=== PATIENT | female | born 1935 | race Caucasian/White ===

== ENCOUNTER 2016-10-27 19:43 | Inpatient (IN) | payer MEDICARE, OTHER ==
[~2016-10-27] VITALS: Ht 162.6 cm; Wt 77.0 kg
[~2016-10-27 19:43] MED LIST: ATEN25TA PO; ATEN50TA PO; HYDR25TA4 PO; ZOLP5TAB6 PO
[2016-10-27] MEDS ORDERED: 0.9% Sodium Chloride 1,000 ML IV ONE (19:49)
[2016-10-27 19:58] VITALS: BP 141/69; PULSE 117; RESP 26; O2SAT 95
--- NOTE | 2016-10-27 20:07 | ABG ---
DateTimeAnalyzed 20:01:00 -_ pH ____7.513 - 7.350 7.450 pCO2 ___27.7__ -mmHg 35.0 45.0 pO2 ___92.8__ -mmHg 69.0 116 HCO3- ___22.1__ -mmol/L 22.0 26.0 ABE ____0.2__ -mmol/L -2.0 2.0 tHb ___10.7__ -g/dL O2Hb ___95.6__ -% COHb ____1.3__ -% MetHb ____0.9__ -% sO2 ___97.7__ -% FIO2 ___28.0__ -% Drawn By AF - Date/Time Notified____ 20:07:00 -_ Oxygen Device 1 __CANNULA - Notified By AF - Notified Whom ___Dr. Clarisse - B 758 -mmHg tO2 ___14.5__ -Vol% Aris test _Positive -
[2016-10-27 20:13] LABS: Mean Corpuscular Hemoglobin 29.6 pg (27.0-35.0); Mean Corpuscular Volume 89.2 fL (81-100)
--- NOTE | 2016-10-27 20:16 | ED.REPORT ---
HPI-General Illness Date of Service Oct 27, 2016 ED Provider: Cesar Robb MD Pt is an 81 year old female who was sent to the ED from urgent care after losing consciousness. Pt states that she took her temperature and saw that it was at 104, which influenced her to go in to the urgent care. Pt states that she has been having a dry cough and shortness of breath for the past several days, worsening with walking around. Pt reports that she has been feeling light headed, and lost consciousness last night as well. She denies any chest pain, shortness of breath or abdominal pain. She admits to back pain, but reports that she has this pain at her baseline. Nursing Notes Stated Complaint: FEVER Chief Complaint: General Complaint Nursing Notes Reviewed: Yes Allergies: Coded Allergies: No Known Allergies (Verified Allergy, Unknown, 10/28/16) Scheduled Aspirin (Aspirin) 81 Mg Tablet 81 MG PO DAILY Atenolol (Atenolol) 25 Mg Tablet 12.5 MG PO DAILY Losartan Potassium (Losartan Potassium) 50 Mg Tablet 25 MG PO BID Scheduled PRN Zolpidem (Zolpidem) 5 Mg Tablet 5 MG PO HS PRN PRN For Insomnia Miscellaneous Medications ([Hydrochlorothiazide]) MG PO General Time Seen by MD: 19:49 Chief Complaint Breathing problem, Fever Hx Obtained From: Patient Arrived By: Ambulance Sudden in Onset?: Yes Onset Occurred: 3 days ago Symptom Duration: Since onset Severity: Current: Mild Severity: Maximum: Moderate Similar Sx Previous: Yes Past Medical History Ambulatory Status Independent Review of Systems Full Review of Systems Constitutional: Reports: Fever, Denies: Chills, Malaise, Weakness - generalized Respiratory: Reports: Non-productive cough, Shortness of breath, Denies: Wheezing Cardiovascular: Denies: Chest pain, Syncope GI: Denies: Abdominal pain, Constipation, Diarrhea, Nausea, Vomiting Female: Denies: Dysuria, Flank pain, Urinary frequency, Urinary urgency Musculoskeletal: Denies: Back pain, Extremity pain, Neck pain Neurologic: Reports: Change LOC, Lightheaded, Syncope, Denies: Dizziness, Headache, Weakness Complete sys rev & neg: except as marked. Physical Exam Nursing note and vitals reviewed. Constitutional: Well-developed, well-nourished. Not diaphoretic. Head: Normocephalic and atraumatic. Mouth/Throat: Oropharynx is clear and moist. No oropharyngeal exudate. Eyes: EOM are normal. Pupils are equal, round, and reactive to light. Neck: Supple, no tracheal deviation. Cardiovascular: tachycardia, irregular rhythm. Equal and intact distal pulses throughout. Pulmonary/Chest: Effort normal and breath sounds normal. No respiratory distress.Rhonchi heard at the right lung base Abdominal: Soft. No distension. There is no tenderness, rebound, or guarding. Bowel sounds present. Musculoskeletal: Range of motion grossly intact, moving all extremities. No edema or tenderness appreciated. Neurological: AOx3. Grossly nonfocal exam. Strength and sensation intact and equal to bilateral upper and lower extremities. Skin: Warm and dry, no rashes or pallor appreciated. Psychiatric: Appropriate mood and affect. Behavior appears normal. Vital Signs Vital Signs Date Time Temp Pulse Resp B/P Pulse Ox O2 Delivery O2 Flow Rate FiO2 10/27/16 23:02 38.2 113 28 102/74 98 Nasal Cannula 3 10/27/16 22:00 38.5 105 124/53 10/27/16 19:58 39.3 117 26 141/69 95 Nasal Cannula 3 Initial VS: Reviewed Interpretation & Diagnostics Lab Results Interpretation Result Diagram: 10/28/16 0200 10/28/16 1335 Test 10/27/16 19:29 10/27/16 23:05 Prothrombin Time 10.4sec (8.1-12.5) Prothromb Time International Ratio 0.97ratio Hemoglobin A1c 5.6% (4.8-5.6) Lactic Acid Level 1.4mmol/L (0.4-2.0) Troponin T < 0.010ug/L (0.0-0.011) Pro-B-Type Natriuretic Peptide 1240pg/mL (0-738) Lipase 28U/L (13-60) Thyroid Stimulating Hormone (TSH) 1.790uIU/mL (0.450-4.500) Urine Color Yellow (YELLOW) Urine Appearance Clear (CLEAR,HAZY) Urine pH 6.5 (5.0-8.0) Urine Specific [place] 1.005 (1.003-1.035) Urine Protein Tracemg/dL (NEG,TRACE) Urine Glucose (UA) Negativemg/dL (NEGATIVE) Urine Ketones Negativemg/dL (NEGATIVE) Urine Occult Blood Small (NEGATIVE) Urine Nitrite Negative (NEGATIVE) Urine Bilirubin Negative (NEGATIVE) Urine Urobilinogen Normalmg/dL (NORMAL) Urine Leukocyte Esterase Trace (NEGATIVE) Urine RBC 3-10/hpf (0-2) Urine WBC 0-5/hpf (0-5) Urine Epithelial Cells Occasional/hpf (NONE-MOD) Urine Crystals None seen (NONE SEEN) Urine Bacteria None/hpf (NONE-FEW) Urine Hyaline Casts None/lpf (NONE) Urine Granular Casts None seen (NONE SEEN) Urine Waxy Casts None seen (NONE SEEN) Urine Red Blood Cell Casts None seen (NONE SEEN) Urine White Blood Cell Casts None seen (NONE SEEN) Urine Mucus None seen (None Seen) Urine Trichomonas None seen (NONE SEEN) Urine Yeast None (NONE SEEN) Urinalysis Comment None Urine Culture Reflexed Not indicated Urine Legionella pneumophilia Ag Negative (Negative) ECG Interpretation ECG Interpretation: Sinus tachycardia - 112 Time: 19:51 Interpreted by: ED physician X-Ray Chest Interpretation Chest Xray Interpretation: IMPRESSION: Focal right basilar opacity most suggestive of pneumonia. Recommend interval follow to document resolution and exclude presence of underlying mass lesion. Dictated by: Angela Pearson M.D. on 10/27/2016 at 20:41 Interpretation / Wet Read by: Interpret - Radiologist CT Head Interpretation IMPRESSION: 1. No acute intracranial process. 2. Moderate atrophy and chronic microvascular ischemic changes. Dictated by: Angela Pearson M.D. on 10/27/2016 at 20:29 Interpretation / Wet Read by: Interpret - Radiologist Re-Eval/Medical Decision Med Decision/Clinical Course In summary, 81-year-old female presenting to the ED for evaluation after being found to be unresponsive with a fever at urgent care in the setting of progressive shortness of breath over the past several days. She does not have any pleuritic symptoms. Laboratory studies notable for phosphate 1.3, lactic acid 1.4, potassium 3, sodium 129, troponin negative, LFTs grossly within normal limits. White blood cell count of 15.3, hemoglobin 11.5. EKG demonstrates sinus tachycardia. Head CT negative for acute abnormalities. Chest x-ray demonstrates a right basilar opacity concerning for pneumonia. Given her fever, elevated white blood cell count, and dyspnea, it seems reasonable that this may be responsible for symptoms. Unclear why the patient became unresponsive at this time. Discussed with the hospitalist at length, who will admit the patient for further management and evaluation. Patient agreeable to the plan as stated, no further questions. Source of Hx: Old records Time of Eval: 23:50 Re-Evaluation/Progress Note: Pt is rechecked and informed of her labs and imaging results and the plan to admit her at this time. She understands and agrees, all questions are addressed. Counseled Regarding: Diagnosis, Lab results, Need for follow-up, Need for admission Discharge & Departure Primary Impression: Pneumonia Additional Impressions: Hyponatremia Hypokalemia Hypophosphatemia Disposition: Home Discharge Condition All VS Reviewed: Yes Condition: Stable Referrals: Zachary Lawrence MD (PCP) Liza Attestation Portions of this note were transcribed by Fidelina Durham. I, Dr. Robb personally performed the history, physical exam and medical decision-making; I reviewed and confirmed the accuracy of the information in the transcribed note. Signed by: Liza Avitia, 10/27/2016 23:42 copies to: Zachary Lawrence MD, William B MD Oct 27, 2016 20:16 PATITO DURHAM Oct 27, 2016 20:34
[2016-10-27 20:26] LABS: BASOPHILS % (AUTO) 0.2 % (0-3); EOSINOPHILS % (AUTO) 0 % (0-5); MONOCYTES % (AUTO) 9.5 % (4-12); Platelet Count 256 bil/L (150-400)
--- NOTE | 2016-10-27 20:31 | DRSVH ---
PROCEDURE: CT BRAIN WITHOUT CONTRAST ([id number]) INDICATIONS: AMS TECHNIQUE: Noncontrast 4.5 mm thick angled axial sections acquired from the foramen magnum to the vertex, with c oronal reformats. COMPARISON: [facility], MR, BRAIN W&W/O CONTRAST, 11/18/2013, 11:40. FINDINGS: Image quality: Excellent. CSF spaces: Basal cisterns are patent. No extra-axial fluid collections. The ventricles are symmet judson in size and shape. Brain: No intracranial bleeds or masses. There is cerebral volume loss for age, with resultant vent ricular and sulcal prominence. There are periventricular and deep white matter chronic small vessel ischemic changes. There is intracranial internal carotid artery atherosclerosis. Skull and face: Calvarium and visualized facial bones appear intact, without suspicious lesions. Sinuses: Visualized sinuses and mastoids are clear. IMPRESSION: 1. No acute intracranial process. 2. Moderate atrophy and chronic microvascular ischemic changes. Dictated by: Angela Pearson M.D. on 10/27/2016 at 20:29 Approved by: Angela Pearson M.D. on 10/27/2016 at 20:30
[2016-10-27 20:35] LABS: INR 0.97 ratio
[2016-10-27 20:41] LABS: TROPONIN T < 0.010 ug/L (0.0-0.011)
--- NOTE | 2016-10-27 20:43 | DRSVH ---
PROCEDURE: X-RAY CHEST ONE VIEW, PORTABLE ([id number]) INDICATIONS: fever, AMS TECHNIQUE: One view of the chest was acquired. COMPARISON: None. FINDINGS: Surgical changes and devices: None. Lungs and pleura: Focal opacity is present within the right base. Mediastinum: Mediastinal contours appear normal. Heart size is normal. Bones and chest wall: No suspicious bony lesions. Overlying soft tissues appear unremarkable. IMPRESSION: Focal right basilar opacity most suggestive of pneumonia. Recommend interval follow to do cument resolution and exclude presence of underlying mass lesion. Dictated by: Angela Pearson M.D. on 10/27/2016 at 20:41 Approved by: Angela Pearson M.D. on 10/27/2016 at 20:41
[2016-10-27 20:51] LABS: Lipase 28 U/L (13-60); Magnesium 1.7 mg/dL (1.6-2.6); Phosphorus 1.3 mg/dL (2.5-4.9)
[2016-10-27 22:00] VITALS: BP 124/53; PULSE 105
[2016-10-27] MEDS ORDERED: Ondansetron 2 mg/mL 2 mL Inj IVPUSH PRN (23:00)
[2016-10-27] MEDS ORDERED: Cefepime Inj 2,000 MG in Dextrose 5% Minibag Plus 100 ML IV ONE (23:00)
[2016-10-27] MEDS ORDERED: levoFLOXacin Inj 750 MG in IV Premix 1 EACH IV ONE (23:00)
[2016-10-27] MEDS ORDERED: Alum-Mag Hydrox-Simeth 30 mL Suspension PO PRN (23:00)
[2016-10-27] MEDS ORDERED: Polyethylene Glycol (PEG) 17 Gm Powder PO PRN (23:00)
[2016-10-27] MEDS ORDERED: Vancomycin Dose per Pharmacist XX ONE (23:00)
[2016-10-27] MEDS ORDERED: Potassium Phos (mEq) Inj 20 MEQ in Dextrose 5% 250 ML IV ONE (23:00)
[2016-10-27 23:02] VITALS: BP 102/74; PULSE 113; RESP 28; O2SAT 98
[2016-10-27] MEDS ORDERED: Vancomycin Inj 1,500 MG in 0.9% Sodium Chloride 500 ML IV ONE (23:05)
--- NOTE | 2016-10-27 23:15 | PCM.HPMED ---
Subjective Date of Service Oct 27, 2016 Primary Provider: Admitting Physician: Primary Care Physician: Zachary Lawrence MD Attending Physician: Chief Complaint: Fever History of Present Illness: Rizwan Shah is an 81-year-old female with past medical issues significant for hypertension and a small hole in her aortic valve who presents to the urgent care due to fever 104F was sent to the emergency department due to loss of consciousness during their examination. Patient states that she lost consciousness prior to this occurrence on Thursday evening while she was in the bathroom. She cannot recall if she was on the toilet or anything about the preceding events. When she regained consciousness she had not sustained any injuries that she could tell. She denies any precipitating event or preceding symptoms. As this was a single episode she did not present for evaluation. Her presentation to the urgent care was due to her fever 104F that was associated with nonproductive cough, nausea, shortness of breath, and dizziness. She denies any headache, vision changes, emesis, diarrhea, dysuria, chest pain, or palpitations. She states she has had the cough for the last 3-4 days and some mild shortness of breath. She denies any sick contacts or recent hospitalizations. She sees Dr. Khan for the hole in her aortic valve. Currently he has not advised any intervention at this time and they are simply monitoring. She has never had a diagnosis of atrial fibrillation. In the ED patient's vitals temperature 39.3, pulse 117, respiratory 26, blood pressure 141/69, pulse oximetry 95% on 3 L nasal cannula. EKG showed A. fib with RVR. Labs were remarkable for leukocytosis of 15.3 with 79% neutrophils, sodium 129, potassium 3.0, lactic acid 1.4, and phosphorus 1.3. In the ED the patient received 1 L fluid and was started on vancomycin, levofloxacin, and cefepime. Review of Systems: Comprehensive review of systems was conducted with the patient and found to be negative except as noted above in HPI. Allergies Coded Allergies: No Known Allergies (Verified Allergy, Unknown, 10/28/16) Home Medications Atenolol Hydrochlorothiazide Losartan Zolpidem PMH Hypertension Mild aortic regurgitation Insomnia Surgical History Appendectomy Operative reduction internal fixation of the right knee and right hip Family History Brother - atrial fibrillation and hypertension Mother - at age 41 from cancer (either ovarian or colon) Father - lung cancer Social History Hx Alcohol Use: Yes (1-2 glasses of wine a week) Hx Substance Use: No Hx Tobacco Use: No Smoking Status: Never Smoker Living Arrangement: with Family Exam Vital Signs Vital Sign - Last Date Time Temp Pulse Resp B/P Pulse Ox O2 Delivery O2 Flow Rate FiO2 10/27/16 19:58 39.3 117 26 141/69 95 Nasal Cannula 3 Exam General: No acute distress, well-developed, well-nourished, appropriately interactive HEENT: Normocephalic, atraumatic. External ears without defect. Pupils equal, round, and reactive to light and accommodation. Anicteric sclerae, moist conjunctivae, and no lid lag. Oropharynx free of erythema and cobble stoning with moist mucosa. Neck: Supple with full range of motion. No jugular venous distension. No bruits. No lymphadenopathy or thyromegaly. Cardiovascular: Tachycardic and irregularly irregular with no discernible murmurs, rubs, or gallops appreciated although difficult with current rate. Pulmonary: Crackles present in the bases bilaterally with decreased lung sounds in the right base. Normal respiratory effort with no use of accessory muscles. Abdomen: Bowel tones present. Soft, nontender, nondistended. Extremities: No clubbing, cyanosis, edema, or lymphadenopathy appreciated. Skin: Normal temperature, turgor, and texture; no rash, ulcers, or subcutaneous nodules appreciated. Neurological: Cranial nerves grossly intact. Normal muscle strength, tone, and bulk. No known gait impairment. Psychiatric: Normal mood and affect. Alert and oriented to person, place, and time. Lab and Diagnostics Result Diagram: 10/27/16192810/27/161928 Microbiology Blood and sputum cultures obtained and sent. X-Rays, CTs and MRIs CT BRAIN WITHOUT CONTRAST IMPRESSION: 1. No acute intracranial process. 2. Moderate atrophy and chronic microvascular ischemic changes. Dictated by: Angela Pearson M.D. on 10/27/2016 at 20:29 Approved by: Angela Pearson M.D. on 10/27/2016 at 20:30 X-RAY CHEST ONE VIEW, PORTABLE IMPRESSION: Focal right basilar opacity most suggestive of pneumonia. Recommend interval follow to document resolution and exclude presence of underlying mass lesion. Dictated by: Angela Pearson M.D. on 10/27/2016 at 20:41 Approved by: Angela Pearson M.D. on 10/27/2016 at 20:41 12-lead ECG A. 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 Admitted for community-acquired pneumonia and new onset atrial fibrillation with RVR. Community-acquired pneumonia, present on admission, active. - Chest x-ray revealed focal right basilar opacity consistent with pneumonia. - In the ED patient given cefepime. Will switch to ceftriaxone and azithromycin. - Albuterol every 4 hours as needed. - Pro calcitonin 0.52 and WBC 15.3 with 79% neutrophils - Respiratory PCR panel, MRSA screen, urine Legionella and strep pneumonia pending. - Blood and sputum cultures ordered. - Repeat CBC in the morning. Sepsis, present on admission, active. - Criteria include temperature 39.3, respiratory rate 26, WBC 15.3, and infectious etiology community acquired pneumonia. - Patient received 1 L fluids in the ED. Continue at 100 ml/hr. Currently hemodynamically stable. - Blood and sputum cultures ordered. - Lactic acid 1.4. - Antibiotics and treatment as above. New onset A. fib with RVR, present on admission, active. - No prior history of A. fib. Patient currently going in and out of A. fib with rates between 90 and 140. - CHADSVASC score 4. - Labs remarkable for hypokalemia and hypophosphatemia. - TSH 1.79. - Echocardiogram ordered for the morning. - Heparin drip started. Consider cardioversion if patient does not convert overnight. - IV metoprolol ordered. - Patient is on atenolol 25 mg for hypertension. Consider switching to metoprolol succinate after patient converts. - Monitor on continuous telemetry. - Employee Benefits Director is Dr. Khan. Obtain records to ensure no prior history of a fib. Syncopal episode, present on admission, active. - Etiology possibly secondary to new onset atrial fibrillation with RVR, current infection, or vasovagal. - Orthostatic blood pressure to be completed. - Echocardiogram ordered for the morning. - Treatment of atrial fibrillation and community acquired pneumonia as above. Electrolyte derangements, present on admission, active. - Potassium 3.0 and phosphorus 1.3. - Replacement initiated. - Repeat potassium and phosphorus in the morning. - Monitor on continuous telemetry. Hypertension, present on admission, chronic. - Patient's home regimen includes losartan, atenolol, and hydrochlorothiazide. - Home meds held as we initiate treatment to control patient's new onset A. fib. Insomnia, present on admission, chronic. - Continue home regimen of zolpidem 10 mg nightly. PRN Medications - Acetaminophen as needed for mild pain/fever/headache - Bowel regimen as needed - Antiemetic as needed Patient is admitted under inpatient status with expected length of stay greater than 2 midnights due to severity of presenting symptoms, risk of adverse event, and complexity of treatment plan. Pain Evaluation: Adequate Pain Control GI Prophylaxis: Not indicated VTE Prophylaxis: Sub-Q Heparin (Unfractionated), SCDs Resuscitation Status: CPR: Attempt Resuscitation Attending Statement The patient was seen and examined together with Dr. Beyer on 10/27 and I agree with the history, exam and plan as outlined in the note above. VIKI BEYER DO Oct 27, 2016 23:15 Pelon Graves MD Oct 28, 2016 02:31
[2016-10-27 23:42] LABS: APPEARANCE,URINE CLEAR (CLEAR,HAZY); COLOR,URINE YELLOW (YELLOW); PH,URINE 6.5 (5.0-8.0)
[2016-10-27 23:43] LABS: OCCULT BLOOD,URINE SMALL (NEGATIVE); UROBILINOGEN,URINE NORMAL (NORMAL)
[2016-10-28] VITALS (18 sets, daily range): BP systolic 103–167; BP diastolic 55–95; PULSE 82–171; RESP 16–36; O2SAT 94–100
[2016-10-28] MEDS ORDERED: Heparin 5,000 Unit/mL Inj SUBQ SCH (00:30)
[2016-10-28] MEDS: Albuterol 2.5 mg/3 mL Inhalation Solution NEB SCH ×5 (00:30→15:40)
[2016-10-28] MEDS: Sodium Chloride LOK Flush 10 mL Syringe IVFLUSH SCH ×4 (00:45→21:01)
[2016-10-28] MEDS ORDERED: 0.9% Sodium Chloride 1,000 ML IV SCH (01:25)
[2016-10-28] MEDS: MeTOProlol 1 mg/mL 5 mL Inj IVPUSH SCH ×3 (01:26→20:41)
[2016-10-28] MEDS: Azithromycin Inj 500 MG in Dextrose 5% w/Vial Mate 250 ML IV SCH (01:33)
[2016-10-28] MEDS ORDERED: Heparin 5,000 Unit/mL Inj IVPUSH PRN (01:35)
[2016-10-28] MEDS ORDERED: Heparin 5,000 Unit/mL Inj IVPUSH ONE (01:35)
[2016-10-28] MEDS: Heparin 25K Unit/500mL 0.45 NS 25,000 UNIT in IV Premix 1 EACH IV SCH (02:01)
[2016-10-28] MEDS ORDERED: ATEN25TA PO (02:29)
[2016-10-28] MEDS ORDERED: ZOLP5TAB6 PO (02:29)
[2016-10-28] MEDS ORDERED: Hydrochlorothiazide PO (02:29)
[2016-10-28] MEDS ORDERED: ASPI-973 PO (02:29)
[2016-10-28] MEDS ORDERED: LOSA50TA37 PO (02:29)
[2016-10-28 02:48] LABS: BASOPHILS % (AUTO) 0.2 % (0-3); EOSINOPHILS % (AUTO) 0.1 % (0-5); MONOCYTES % (AUTO) 8.6 % (4-12); Mean Corpuscular Hemoglobin 29.1 pg (27.0-35.0); Mean Corpuscular Volume 86.6 fL (81-100); NEUTROPHILS % (AUTO) 81.5 % (40-74); Platelet Count 199 bil/L (150-400)
[2016-10-28] MEDS ORDERED: 0.9% Sodium Chloride 500 ML IV ONE (03:20)
[2016-10-28] MEDS ORDERED: KCl 40 mEq/D5W 500 mL 40 MEQ in IV Premix 500 EACH IV ONE (05:05)
--- NOTE | 2016-10-28 06:47 | NUR ---
Admit Pt arrived to [facility] room 2005 via bed from ED at approx. 0005; all belongings transferred with pt; report received from Alysa Sanford RN. Advanced directive at home per pt report. Admit documentation and med rec completed via pt information. Pt denies any pain. Febrile on admit, Tylenol administered throughout shift and temperature reduced this AM to 99.7F. 5mg metoprolol IVP administered r/t afib/RVR; after administration, HR reduced to 80s-110s, but pt experienced some mild hypotension; paged, one time 500ml bolus administered with increase in SBP to 100s upon reassessment. Vital signs otherwise stable. Pt flipped between afib and irregular sinus this shift; currently SR 80s. 1L NC applied r/t decrease in oxygenation to 88-89% on RA. 1PA to BSC; pt weak and dizzy on ambulation but tolerates fair. Heparin gtt infusing at 1000units/hr.
[2016-10-28] MEDS ORDERED: Azithromycin Inj 500 MG in Dextrose 5% w/Vial Mate 250 ML IV SCH (08:30)
[2016-10-28] MEDS: cefTRIAXone Inj 2,000 MG in Dextrose 5% Minibag Plus 50 ML IV SCH (10:20)
--- NOTE | 2016-10-28 12:14 | PCM.PNMED ---
Subjective Date of Service Oct 28, 2016 Subjective pt remained less tachycardic, HD stable overnight but still intermittently tachy to 140s this AM, hypoxic required 4liter NC pt c/o dry cough, denied SOB, denied chest pain, palpitation, tolerating heparin gtt EKG reviewed by , awaits recommendation Exam Vital Signs Vital Sign - Last Date Time Temp Pulse Resp B/P Pulse Ox O2 Delivery O2 Flow Rate FiO2 10/28/16 11:49 38.6 102 26 121/74 97 Nasal Cannula 4.00 Intake and Output 10/27/16 10/27/16 10/28/16 Cumulative From/Thru 15:00 23:00 07:00 10/27/16 19:58 - 10/28/16 06:52 Intake Total 1000 ml 2053 ml 3053 ml Output Total 350 ml 350 ml Balance 1000 ml 1703 ml 2703 ml Intake Oral 300 ml 300 ml IV Total 1000 ml 1753 ml 2753 ml Output Urine Total 350 ml 350 ml # Voids 1 1 Exam NAD, comfortably laying down on the bed no JVD, MMM, no LAD Irregular tachycardic, nl s1, s2 no mrg CTAB, no w,c S,ND,NT,normoactive BS+ warm, no edema, pulses 2/2 IVs and Medications Medications Reviewed: Medications were reviewed in detail Lab and Diagnostics Result Diagram: 10/28/16 0200 10/28/16 0200 Microbiology Blood and sputum cultures obtained and sent. X-Rays, CTs and MRIs CT BRAIN WITHOUT CONTRAST IMPRESSION: 1. No acute intracranial process. 2. Moderate atrophy and chronic microvascular ischemic changes. Dictated by: Angela Pearson M.D. on 10/27/2016 at 20:29 Approved by: Angela Pearson M.D. on 10/27/2016 at 20:30 X-RAY CHEST ONE VIEW, PORTABLE IMPRESSION: Focal right basilar opacity most suggestive of pneumonia. Recommend interval follow to document resolution and exclude presence of underlying mass lesion. Dictated by: Angela Pearson M.D. on 10/27/2016 at 20:41 Approved by: Angela Pearson M.D. on 10/27/2016 at 20:41 12-lead ECG A. 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 Admitted for community-acquired pneumonia and new onset atrial fibrillation with RVR. acute, active Community-acquired pneumonia, present on admission, active. Chest x-ray revealed focal right basilar opacity consistent with pneumonia. Pro calcitonin 0.52 and WBC 15.3 with 79% neutrophils, In the ED patient given cefepime. Swithced to ceftriaxone and azithromycin. - pt remained symptomatic but maintain airways, requiring O2 supplement, - Albuterol every 4 hours as needed. -infectious w/u: so far ngtd- Respiratory PCR panel, MRSA screen, urine Legionella and strep pneumonia, Blood and sputum cultures -O2 supplement target>95% New onset A. fib with RVR, present on admission, active. EKG is bit unclear, had brief proxysmal afib on admission, then probable sinus arrhythmia, SVT. Likely triggered in the setting of acute infection, hypokalemia, hypoxia. No prior history of A. fib. CHADSVASC score 4. pt was stated on heparin gtt. -given ongoing episode today, ordered metoprolol tartrate 25mg, metoprolol 5mg ivp x3 prn -Special Needs Teacher is Dr. Khan. awaits recommendation, probable cardioversion - Echocardiogram ordered Syncopal episode, present on admission, active. CTH, Etiology possibly secondary to new onset atrial fibrillation with RVR, current infection, or vasovagal. -pt remained neurologically intact, given transient LOC, almost amnesia-like episode, first rule out organic causes with MR stroke protocol, consider carotid US. pt denied any psychiatric dz. -get Orthostatic blood pressure once pt is more stable Electrolyte derangements, present on admission,Potassium 3.0 and phosphorus 1.3 -K still remained low, continue replacement - Repeat potassium and phosphorus in the morning. - Monitor on continuous telemetry. chronic, stable resolved, Sepsis, present on admission, active. infectious etiology community acquired pneumonia. - Patient received 1 L fluids in the ED. Continue at 100 ml/hr. Currently hemodynamically stable. Hypertension, present on admission, chronic. - Patient's home regimen includes losartan, atenolol, and hydrochlorothiazide. - Home meds held as we initiate treatment to control patient's new onset A. fib. Insomnia, present on admission, chronic. - Continue home regimen of zolpidem 10 mg nightly. dispo: pending home once pt is more stable, no need GI Prophylaxis: Not indicated VTE Prophylaxis: Sub-Q Heparin (Unfractionated), SCDs Resuscitation Status: CPR: Attempt Resuscitation Time spent 35 minutes Reyna Deras MD Oct 28, 2016 12:01
[2016-10-28 13:23] LABS: Magnesium 1.3 mg/dL (1.6-2.6)
--- NOTE | 2016-10-28 16:34 | DRSVH ---
[facility] [address] [facility] [place] [address] Echocardiogram Report Name: NATO RICH JStudy Date: Height: 64 in Hospital Exam Location: [facility] Weight: 170 lb Gender: Female BSA: 1.8 m2 : 1935 Age: 81 yrs BP: 103/65 mm Hg Reason For Study: Atrial fibrillation Ordering Physician: Raciel BeanistPerformed By: Reed Salas Referring Physician: VIKI BEYER Interpretation Summary The left ventricle is normal in size. The ejection fraction is estimated to be 60-65%.There has been no significant change in LV EF since the previous study. The right ventricle is normal size. The right ventricular systolic function is normal. The left atrium is severely dilated. The left atrium has significantly increased in size since the prior echo exam. There is mild mitral regurgitation. Compared to the prior echo study, there has been no change in the severity of mitral regurgitation. There is mild tricuspid regurgitation. The right ventricular systolic pressure is estimated at 32 mmHg assuming a right atrial pressure of 3 mm Hg. has been no significant change since the previous study. Procedure: A two-dimensional transthoracic echocardiogram with color flow and Doppler was performed. The study quality was technically adequate. There is no prior echocardiogram noted for this patient. The patient was in normal sinus rhythm during the exam. Left Ventricle: The left ventricle is normal in size. There is normal left ventricular wall thickness. There is no thrombus. The ejection fraction is estimated to be 60-65%. There has been no significant change since the previous study. There are no focal wall motion abnormalities. The E/E'is normal. Right Ventricle: The right ventricle is normal size. The right ventricular systolic function is normal. Atria: The left atrium is severely dilated. The left atrium has significantly increased in size since the prior echo exam. The right atrium is mildly dilated. There has been no significant change since the previous study. The interatrial septum is intact with no evidence for an atrial septal defect. Mitral Valve: The mitral valve leaflets are slightly calcified. There is mild mitral regurgitation. The mitral regurgitant jet is eccentrically directed. Compared to the prior echo study, there has been no change in the severity of mitral regurgitation. Aortic Valve: The aortic valve is trileaflet. The aortic valve opens well. No aortic regurgitation is present. Compared to the prior echo study, there has been a decrease in the severity of aortic regurgitation. Tricuspid Valve: The tricuspid valve is not well visualized, but is grossly normal. There is mild tricuspid regurgitation. The right ventricular systolic pressure is estimated at 32 mmHg assuming a right atrial pressure of 3 mm Hg. Pulmonic Valve: The pulmonic valve is not well seen, but is grossly normal. There is trace pulmonic regurgitation. Great Vessels: The aortic root is normal size. The dimensions of the ascending aorta are normal. The pulmonary artery is normal size. The IVC is of normal diameter and collapses greater than 50% with a sniff. This suggests a low right atrial pressure of 3 mm Hg. Pericardium/ Pleura There is no pericardial effusion. There is an anterior echo-free space consistent with a fat pad. There is no pleural effusion. MMode/2D Measurements & Calculations LVIDd: 4.4 cm RA long axis LVOT diam: 1.8 cm LVIDs: 2.7 cm LA A2 area: 22.2 cm AoV Opening FS: 39.4 % LA A4 area: 28.3 cm RA area IVSd: 0.87 cm LA length (vol) Ao root diam LVPWd: 0.81 cm : 21.8 cm LA vol: 95.2 ml RA vol asc Aorta Diam LA vol index : 62.4 ml RA Ao Arch Diam (Prox : 52.2 ml/m2 : 34.2 mm2 Trans): 3.2 cm LV king. diameter/BSA LV sys. diameter/BSA RVD1 (basal) TAPSE: 2.1 cm (cm/m^2): 2.4 (cm/m^2): 1.5 Doppler Measurements & Calculations Ao V2 max: 183.7 cm/secMV E max marquise MV E/A: 2.1 TR max marquise Ao max P.5 mmHg : 108.7 cm/sec Med Peak E' Marquise : 267.9 cm/sec Ao mean P.4 mmHg MV A max marquise TR max PG LVOT Max Marquise : 51.7 cm/sec E/E' med: 11.3 : 28.7 mmHg : 124.9 cm/sec Lat Peak E' Marquise PA V2 max : 98.7 cm/sec MARIANA(I,D): 1.8 cm E/E' lat: 13.1 PA mean PG sev ratio: 0.72 E/e' average : 2.2 mmHg MV dec time: 0.18 sec Ao V2 mean LV V1 max PG PA V2 mean : 129.1 cm/sec : 70.4 cm/sec Ao V2 VTI: 32.9 cmLV V1 VTI PA pr(Accel) : 23.8 cm : 43.2 mmHg MARIANA(V,D): 1.7 cm2 MARIANA indexed to BSA (cm^2/m^2): 0.97 Reading Physician:MAHESH
--- NOTE | 2016-10-28 17:49 | NUR ---
Cardiology, [facility] 0945 - Discussed her care with Dr. Deras and the rest of the multidisciplinary care team during morning rounds. Asked if she could be saline locked from her heparin drip so she could go down and get an MRI. He said to hold off from the MRI for now and to keep the heparin drip going. 1120 - [facility] [employer] called a few times to say that her heart rate kept trending up to A-fib 130s-170s. Taty Eden RN assisted with her care, contacted Dr. Deras, and received orders for IV and PO Metoprolol which were given. Her heart rate decreased into the low 100s. 1327 - She had no diet ordered. Paged Dr. Deras who called back and ordered a general diet. He said to keep the heparin going and hold off on the MRI until Cardiology could see her and decide on her Heparin drip. 163 - Dr. Khan (Cardiology) came to see her and said to keep her heparin drip going, but that it could discontinued for the MRI, he would start Metoprolol twice a day, and that she needed another K-rider as her potassium was still low. He spoke to Dr. Deras as well. MRI was notified. 1809 - MRI department transported her to [facility] with 4L of O2. The [employer] [employer] was notified and her telemetry was removed. Her heparin drip was saline locked. Care continues. Addendum: 10/28/16 at 1920 by BISHNU MARTELL RN 5 - Arrived back from [facility] to 2005. She was placed back on telemetry and her heparin drip. Care continues.
--- NOTE | 2016-10-28 19:45 | DRSVH ---
PROCEDURE: MRI STROKE PROTOCOL ([id number]) Pre- and post-contrast brain MRI, non-contrast brain MR angiogram, pre- and postcontrast neck MR perfecto ogram INDICATIONS: TRANSIENT LOC [id number] TECHNIQUE: Brain: Noncontrast axial T1 spin echo, axial T2 fast spin echo, sagittal and axial FLAIR, coronal T2 fast spin echo, axial gradient echo, axial diffusion and ADC through the brain. After the administr ation of contrast, axial 3D VIBE of the cranial vasculature and brain. Brain MRA: Non-contrast 3-D time of flight MR angiogram, with multiple haakkll-mnfqeltbg-orucaubjao (MIP) reformats performed. Neck MRA: Axial and sagittal TruFISP through the neck. Coronal dynamic MR angiogram during administ ration of contrast in the arterial and venous phases, with 3-dimenstional txvavbh-kbjsjfllr-aqpszlwsi n (MIP) reformats constructed from subtraction images. COMPARISON: [facility], CT, CT BRAIN WO CON, 10/27/2016, 20:14. FINDINGS: Image quality: Excellent. BRAIN: CSF spaces: Ventricles are normal in size and shape. Basal cisterns are patent. No extra-axial flu id collections. Brain: No intracranial bleeds. Mild diffuse cerebral volume loss. Minimal degree of patchy high FLAI R signal within the periventricular and subcortical white matter. Berrios-white matter interface is norm al. Diffusion weighted images show no acute ischemic insults. Brainstem appears normal. Normal int ravascular flow voids are present. Within the right posterior fossa, there is a 14 mm diameter dural based well circumscribed mass at the anterolateral aspect of the right cerebellar hemisphere, which d emonstrates ntermediate T2 signal intensity as well as peripheral enhancement following intravenous c ontrast administration. Skull and face: Calvarial marrow signal is normal. Orbits appear normal. Sinuses: Sinuses and mastoids are clear. BRAIN MR ANGIOGRAM: Anterior circulation: Intracranial internal carotid arteries are normal in size and enhancement. Th e flow within the paired anterior cerebral arteries is normal and symmetric. The flow within the mid dle cerebral arteries is normal and symmetric. The anterior communicating artery is seen. No stenos es, occlusions, or aneurysms. Posterior circulation: The visualized portions of the vertebral arteries demonstrate normal caliber, and join to form a normal appearing basilar artery. The flow within the posterior cerebral arteries is normal and symmetric. No stenoses, occlusions, or aneurysms. NECK MR ANGIOGRAM: Carotids: Great vessels demonstrate a conventional anatomy as they arise from the aortic arch. The origins of the common carotid arteries appear patent. The calibers and courses of both common caroti d arteries are normal. There is a roughly 50% weblike stenosis of the right internal carotid artery o rigin. Left internal carotid artery is patent. Posterior circulation: The origins of the vertebral arteries appear patent. More superior portions of both vertebral arteries demonstrate normal course and caliber, and join to form a normal appearing basilar artery. Miscellaneous: Subclavian arteries appear patent. Pre-contrast images through the neck show no soft tissue abnormalities. IMPRESSION: BRAIN MRI: 1. Mild volume loss and small vessel ischemic disease. 2. No acute process. No recent infarct. 3. Indeterminate right posterior fossa mass, which demonstrates benign characteristics, and may repre sent an infarcted or atypical meningioma versus schwannoma. Followup brain MRI with and without intra venous contrast in 3 months is recommended to document stability and exclude less likely, more aggres sive etiologies. BRAIN MR ANGIOGRAM: Negative cerebral MR angiography. NECK MR ANGIOGRAM: 1. Suboptimally visualized weblike stenosis of the right internal carotid artery origin. Further asse ssment with carotid arterial Doppler examination is recommended. 2. No left internal carotid artery stenosis. 3. Patent bilateral vertebral arteries. The estimate of stenosis included in the report of the imaging study was calculated using the NASCET method Dictated by: Eliecer Barajas M.D. on 10/28/2016 at 19:38 Transcribed by: MEGHNA on 10/28/2016 at 19:45 Approved by: Eliecer Barajas M.D. on 10/29/2016 at 9:36
[2016-10-28] MEDS ORDERED: Potassium Chloride 20 mEq SR Tablet PO ONE ×2 (20:30→21:05)
[2016-10-28] MEDS ORDERED: Magnesium Sulf 4 Gm/100 mL H2O 4 GM in IV Premix 1 EACH IV ONE (20:30)
[2016-10-28] MEDS: Albuterol 2.5 mg/3 mL Inhalation Solution NEB PRN (20:38)
--- NOTE | 2016-10-28 21:04 | CONS ---
[address] [address] CONSULTATION REPORT PATIENT: NATO RICH : 1935 MR#: [id number] ADMIT: 10/27/2016 JOB ID: [id number] DATE OF SERVICE: 10/28/2016 REASON FOR CONSULTATION: SVT. HISTORY OF PRESENTING ILLNESS: The patient is an 81-year-old, delightful woman with a known history of hypertension, mild mitral regurgitation. She had not been feeling well for the last 3-4 days prior to admission. She reported symptoms of extreme tiredness, dizziness and had elevated fevers of 104. She was seen at the urgent care center where she reported symptoms of nonproductive cough, nausea, shortness of breath and dizziness. She felt extremely fatigued and tired. Apparently, while she was being evaluated at the urgent care, she passed out. At that point, she was transferred over to [facility] for further evaluation. She denies URI symptoms, headaches, myalgias, more body aches prior to onset of these symptoms. She denies any contact with the family members or recent hospitalization or visit to the hospital as well. No reported history of weight loss, hemoptysis, GI or complaints. She was evaluated in the emergency department and was noted to have an elevated temperature and in atrial fibrillation with rapid ventricular rate in the emergency department. She had leukocytosis. A provisional diagnosis of pneumonia was made and the patient was brought into the hospital for further management. REVIEW OF SYSTEMS: Significant for fever, chills, nonproductive cough, shortness of breath, dizziness, fatigue and tiredness. MEDICATIONS: Current medications include: 1. Albuterol nebulizers every 4 hours. 2. Metoprolol tartrate 5 mg IV push p.r.n. for tachycardia. 3. Rocephin 2 g daily. 4. Heparin drip per cardiac protocol. 5. Erythromycin 500 mg daily. 6. Ambien 5 mg p.r.n. ALLERGIES: She has no known drug allergies. CURRENT MEDICATIONS: 1. Hydrochlorothiazide. 2. Losartan. 3. Ambien. 4. Atenolol. PAST MEDICAL HISTORY: Significant. 1. Hypertension. 2. Mild aortic regurgitation. 3. Mild mitral regurgitation. 4. History of insomnia. PAST SURGICAL HISTORY: Appendectomy and open reduction, internal fixation of the right knee and right hip. FAMILY HISTORY: Brother has atrial fibrillation and hypertension. Mother at age 41 from cancer. Father had lung cancer. SOCIAL HISTORY: Nonsmoker. History of alcohol use. Social drinking only. Living arrangement: She lives with her family and has adequate family support systems. OBJECTIVE: Vital signs: Her blood pressure is 121/74, pulse of 90-100 and oxygen saturation of 97% on nasal cannula 4 L/minute. She is alert, oriented, not in distress. She is lying in the bed. Pupils are normal size and reaction. Oral and dental hygiene is normal. She has a dry tongue. Neck: There is no JVD. No lymphadenopathy. Neck is soft, supple. There is no neck rigidity. Air entry is fair and equal on both sides. She does have crackles in the lung bases posteriorly. S1-S2 is normal. She has a soft early systolic murmur in the left sternal border. Abdomen is soft, benign. Nontender lower extremities. Neurologically, she is grossly intact. LABS: Her white count is 13.8, trending down. Hemoglobin of 9.8, hematocrit of 29.2, and platelets of 199. Chemistry panel: Sodium of 127, potassium of 3.1, calcium of 7.3, and repeat potassium of 3.2. No magnesium levels drawn. Her PTT is 64.4. Patient is currently on heparin drip. Chest x-ray demonstrates focal right basilar opacities suggestive of pneumonia. CT of the brain shows no acute intracranial process. Moderate atrophy and chronic microvascular ischemic changes. MR angio was performed and results not available. DIAGNOSTIC STUDIES: EKG shows normal sinus rhythm with paroxysmal atrial fibrillation, paroxysmal atrial tachycardia, PACs, atrial bigeminy and atrial couplets. No ST-T changes are noted. Telemetry was reviewed and noted multiple episodes of paroxysmal atrial tachycardia and paroxysmal atrial fibrillation with rapid ventricular rate. ASSESSMENT: 1. Supraventricular tachycardia. The patient has most likely SVT secondary to her ongoing pneumonia. In addition, she has other triggers which include hyponatremia, hypokalemia and hypocalcemia. Certainly, an abnormality with electrolyte profile makes the cardiac membrane potentially more unstable and prone to arrhythmias. She has no prior history of atrial arrhythmias. The echocardiogram revealed normal systolic function though she has enlarged left atrial size. This probably is an age-related change. It certainly makes her more susceptible to atrial arrhythmias, however, in the acute setting I think this is precipitated by her underlying pneumonia. Pneumonia: She is being treated by the hospitalist service with Rocephin and azithromycin for community-acquired pneumonia. No history of viral prodromal symptoms or recent contact.Since patient is having paroxsymal atrial fibrillation and tachycardia cardioversion would not be optimal therapy at this point. 2. Syncope. The patient passed out in the urgent care and being evaluated for syncope by imaging studies, MR angiogram results are still pending. 3. Hyponatremia. 4. Hypokalemia. Magnesium levels are not available. 5. Hypocalcemia. RECOMMENDATIONS: 1. Correct electrolyte imbalance with potassium riders and keep calcium IV if indicated after correcting for albumin levels. 2. Metoprolol tartrate 25 mg twice daily. 3. Treatment of pneumonia. Once the patient is clinically stable, initiate Coumadin or normal oral anticoagulants. Patient does not have any contraindications for using novel oral anticoagulants (NOAC). I would prefer low dose given her age of more than 80. Serum creatinine of 0.96. Or if there are cost considerations then initiating Coumadin would be a good choice. I appreciate the opportunity to participate in the care of this delightful woman. Please do not hesitate to call me should you have any questions. My #[phone]. TOTAL TIME SPENT: 60 minutes. KAIN
[2016-10-29] VITALS (13 sets, daily range): BP systolic 93–167; BP diastolic 45–86; PULSE 84–121; RESP 20–40; O2SAT 93–99
[2016-10-29] MEDS: Azithromycin Inj 500 MG in Dextrose 5% w/Vial Mate 250 ML IV SCH (01:15)
[2016-10-29 02:18] LABS: BASOPHILS % (AUTO) 0.3 % (0-3); EOSINOPHILS % (AUTO) 0.1 % (0-5); MONOCYTES % (AUTO) 7.8 % (4-12); Mean Corpuscular Hemoglobin 29.5 pg (27.0-35.0); Mean Corpuscular Volume 87.5 fL (81-100); NEUTROPHILS % (AUTO) 80.1 % (40-74); Platelet Count 184 bil/L (150-400)
[2016-10-29 03:11] LABS: Magnesium 3.1 mg/dL (1.6-2.6); Phosphorus 2.3 mg/dL (2.5-4.9)
[2016-10-29] MEDS: Heparin 25K Unit/500mL 0.45 NS 25,000 UNIT in IV Premix 1 EACH IV SCH (05:30)
[2016-10-29] MEDS ORDERED: MeTOProlol 1 mg/mL 5 mL Inj IVPUSH ONE (06:00)
[2016-10-29] MEDS: Ipratropium 0.02% 0.5 mg/2.5 mL Inhalation Solution NEB PRN (06:02)
[2016-10-29] MEDS ORDERED: Diltiazem 5 mg/mL 5 mL Inj IVPUSH ONE ×2 (06:15→06:25)
[2016-10-29] MEDS: Diltiazem Inj 125 MG in Dextrose 5% 100 ML IV SCH ×2 (06:40→19:48)
--- NOTE | 2016-10-29 07:43 | NUR ---
Telemetry Pt repeatedly flipping between afib/SR; had episode of SVT in the 170s at HS that resolved with 5mg IVP metoprolol; pt severely symptomatic with dyspnea, palpitations, diaphoresis, coarse breath sounds and tachypnea during tachycardia. Pt able to rest otherwise throughout shift. Consistently experiencing diarrhea with coughing; MD aware, orders for C.diff sample given. This AM, pt woke suddenly from another episode of afib/RVR/SVT in 170s and hypertension with SBP 160s. paged, 5mg IVP metoprolol administered with temporary reduction in HR to 110s, but no relief to symptoms. Pt had significantly labored breathing with coarse crackles to lungs, tachypnea, dyspnea, and severe anxiety. Upon reassessment, HR began to increase back to 130s, SBP increased to 180s, and oxygen need began to increase with SPO2 90s% on 6L oxymask. RT paged for nebulizer treatment but no relief on reassessment. paged again, STAT CXR obtained, 10mg IVP of Cardizem administered without effect, and pt SpO2 began to drop to 85% despite 10L oxymask. Pt reported feeling very uncomfortable and tired from work of breathing; BiPAP initiated on patient and Cardizem drip initiated with additional 10mg IVP bolus for a total of 20mg IVP bolus. On reassessment, HR reduced to 100s, BP reduced to 110s systolic, and pt reports relief of breathing; more comfortable to assessment. MP30 in room.
[2016-10-29] MEDS: Sodium Chloride LOK Flush 10 mL Syringe IVFLUSH SCH ×2 (08:02→16:30)
[2016-10-29] MEDS: cefTRIAXone Inj 2,000 MG in Dextrose 5% Minibag Plus 50 ML IV SCH (08:02)
--- NOTE | 2016-10-29 09:26 | NUR ---
off bipap for meal pt went off of bipap to eat breakfast. On 6L NC pt tolerated breakfast well maintaining a sat in the low 90's upper 80's, but was tired after meal. RR up to 36 at times. Pt pt back on Bipap after breakfast.
--- NOTE | 2016-10-29 10:37 | PCM.PNMED ---
Subjective Date of Service Oct 29, 2016 Subjective She is comfortable on BiPAP. She denies any palpitations or chest pain. She did have fevers and weakness as well as a dry cough prior to arrival. Microbiology studies are negative. Her graft no abdominal pain, or nausea. No difficulty urinating. No overnight events noted. Exam Vital Signs Vital Sign - Last Date Time Temp Pulse Resp B/P Pulse Ox O2 Delivery O2 Flow Rate FiO2 10/29/16 08:40 86 24 99 OxyMask 6.00 10/29/16 08:40 97/54 50 10/29/16 07:50 38.0 Intake and Output 10/28/16 10/28/16 10/29/16 Cumulative From/Thru 15:00 23:00 07:00 10/27/16 19:58 - 10/29/16 06:50 Intake Total 2043 ml 1590 ml 6686 ml Output Total 400 ml 1800 ml 2550 ml Balance 1643 ml -210 ml 4136 ml Intake Oral 800 ml 800 ml 1900 ml IV Total 1243 ml 790 ml 4786 ml Output Urine Total 400 ml 1000 ml 1750 ml Urine/Stool Mix 800 ml 800 ml # Voids 2 1 4 Exam Alert and oriented -3, no distress. Fluent speech. On BiPAP and comfortable. Anicteric sclera. Lungs are clear with normal rate and effort Heart is regular without murmur gallop or rub Abdomen soft nontender, flat Extremities are free of edema. Skin is free of rash or lesions. IVs and Medications Medications Reviewed: Medications were reviewed in detail Lab and Diagnostics Result Diagram: 10/29/16 0200 10/29/16 0200 Microbiology Blood and sputum cultures obtained and sent. X-Rays, CTs and MRIs CT BRAIN WITHOUT CONTRAST IMPRESSION: 1. No acute intracranial process. 2. Moderate atrophy and chronic microvascular ischemic changes. Dictated by: Angela Pearson M.D. on 10/27/2016 at 20:29 Approved by: Angela Pearson M.D. on 10/27/2016 at 20:30 X-RAY CHEST ONE VIEW, PORTABLE IMPRESSION: Focal right basilar opacity most suggestive of pneumonia. Recommend interval follow to document resolution and exclude presence of underlying mass lesion. Dictated by: Angela Pearson M.D. on 10/27/2016 at 20:41 Approved by: Angela Pearson M.D. on 10/27/2016 at 20:41 12-lead ECG A. 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 Admitted for community-acquired pneumonia and new onset atrial fibrillation with RVR. #. Community-acquired pneumonia, present on admission, active and slowly improving. Chest x-ray revealed focal right basilar opacity consistent with pneumonia. Pro calcitonin 0.52 and WBC 15.3 with 79% neutrophils, In the ED patient given cefepime. Swithced to ceftriaxone and azithromycin. - pt remained symptomatic but maintain airways, requiring O2 supplement, - Albuterol every 4 hours as needed. -infectious workup is unrevealing including a PCR panel and Legionella as well as pneumonia. -O2 supplement target>95%, BiPAP as needed. Continue ceftriaxone and azithromycin. #. Acute respiratory failure with hypoxia, POA and active. We will continue BiPAP support as needed. Wean as able. #. New onset atrial fibrillation with rapid ventricular response, present on admission and improved on diltiazem drip . -given ongoing episode today, ordered metoprolol tartrate 25mg, metoprolol 5mg ivp x3 prn -Band Instrument Maker is Dr. Khan. awaits recommendation, probable cardioversion - Echocardiogram reveals chronic mild to moderate mitral regurg with left atrial dilatation, unchanged from prior ECHO - We will titrate metoprolol to 50 twice a day and attempt to wean diltiazem drip. #. Syncopal episode, present on admission, and resolved. Follow clinically. #. Hypokalemia and hypophosphatemia, present on admission and improving. Follow-up replete as necessary #. Sepsis, present on admission, improved. infectious etiology community acquired pneumonia. - Patient received 1 L fluids in the ED. Continue at 100 ml/hr. Currently hemodynamically stable. Continue antibiotics. #. Essential Hypertension, present on admission, chronic. - Patient's home regimen includes losartan, atenolol, and hydrochlorothiazide. - Home meds held as we initiate treatment to control patient's new onset A. fib. Insomnia, present on admission, chronic. - Continue home regimen of zolpidem 10 mg nightly. dispo: pending home once pt is more stable, no need GI Prophylaxis: Not indicated VTE Prophylaxis: Sub-Q Heparin (Unfractionated), SCDs Resuscitation Status: CPR: Attempt Resuscitation Aris Jacob MD Oct 29, 2016 10:37
--- NOTE | 2016-10-29 11:05 | DRSVH ---
PROCEDURE: X-RAY CHEST ONE VIEW, PORTABLE ([id number]) INDICATIONS: SHORT OF BREATH TECHNIQUE: One view of the chest was acquired. COMPARISON: [facility], CR, XR CHEST 1VW (PORTABLE), 10/27/2016, 20:09. FINDINGS: Surgical changes and devices: None. Lungs and pleura: Progression of right basilar masslike infiltrate. Left basilar atelectasis or early infiltrate. Mediastinum: Mediastinal contours appear normal. Heart size is normal. Bones and chest wall: No suspicious bony lesions. Overlying soft tissues appear unremarkable. IMPRESSION: Worsening bibasilar right greater than left pulmonary opacities. Recommend radiographic f ollowup to resolution to exclude underlying mass lesion. If findings do not resolve chest CT with con trast will be needed. Dictated by: Bo Song M.D. on 10/29/2016 at 8:55 Approved by: Bo Song M.D. on 10/29/2016 at 8:57
--- NOTE | 2016-10-29 15:57 | NUR ---
Social Work Note: Brief Note/ Attempted Initial Assessment/Multidisciplinary Rounds Data& Assessment: EMR reviewed. Pt was discussed in AM rounds today, per MD pt remains on bipap and a drip. SW attempted to meet with pt at bedside to discuss discharge planning, pt on BIPAP and sleeping heavily. SW attempted to contact pt for baseline information, voicemail left with request to call back. Luci Shah is a 81 year old female admitted on 10/27/2016 for sepsis. Pt has Medicare and [facility] supplement. Pt sees Festus Lawrence MD for primary care. SW to follow up with pt or pt regarding initial assessment. No MD orders identified at this time. SW to continue to follow. Plan: SW to follow up with pt or pt regarding initial assessment. No MD orders identified at this time. SW to continue to follow. MAURICE Conn
--- NOTE | 2016-10-29 18:14 | NUR ---
Bipap/meals/diltiazem/heparin/diarrhea/rhythm pt has been on and off bipap 45% IE 24/09. Pt tolerates 6L NC ok for about 1 hr and then tires out every time, RR gets up in mid 30's then pt goes back on bipap. Pt was able to be on NC for meals and tolerated that well. One episode of diarrhea this am and none since. Pt remains on diltiazem and heparin gtts and rates are unchanged all day.Pt remained in SR 90's all day.
[2016-10-30] VITALS (14 sets, daily range): BP systolic 101–138; BP diastolic 49–80; PULSE 90–105; RESP 20–36; O2SAT 91–98
[2016-10-30] MEDS: Sodium Chloride LOK Flush 10 mL Syringe IVFLUSH SCH ×4 (00:02→19:46)
[2016-10-30] MEDS: Azithromycin Inj 500 MG in Dextrose 5% w/Vial Mate 250 ML IV SCH (01:13)
--- NOTE | 2016-10-30 04:34 | NUR ---
HEP/DILT GTT Pt had an uneventful night. Dilt @ 10 mg/hr, Hep @ 1000 units/hr. Pt was on 6L NC on initial assessment then requested to be put back on BiPAP @ 45% FiO2. Pt had 2 small liquid stools. Pt has been SR 80-90's. No other issues noted @ this time.
--- NOTE | 2016-10-30 08:15 | NUR ---
Bipap RT removed Bipap per pt request to eat. Pt SPO2 decreased to 98% on 6 L NC, pt tachypneic, RT placed Bipap back on pt. Pt states she feels better with Bipap on. MD aware. Care continues.
[2016-10-30] MEDS: Heparin 25K Unit/500mL 0.45 NS 25,000 UNIT in IV Premix 1 EACH IV SCH (08:53)
[2016-10-30] MEDS: Ipratropium 0.02% 0.5 mg/2.5 mL Inhalation Solution NEB PRN (08:54)
[2016-10-30] MEDS: Albuterol 2.5 mg/3 mL Inhalation Solution NEB PRN (08:54)
[2016-10-30] MEDS: cefTRIAXone Inj 2,000 MG in Dextrose 5% Minibag Plus 50 ML IV SCH (10:38)
--- NOTE | 2016-10-30 10:49 | NUR ---
Social Work: Initial Assessment/Multidisciplinary Rounds D: Per EMR review, pt is an 81 year old female admitted for sepsis, secondary pulmonary source. Pt is Medicare with [employer]; pt has no LTC insuracne or [facility] benefits. PCP is Festus Lawrence MD. NOK is Kyle Shah, spouse, . Advanced directives requested for chart. Readmit score is low, 1/8. Pt discussed in am rounds. pt is not medically stable for discharge and will require several more days of hospitalization. Capacity for self care discuss- no concerns at this time. PT evaluation will be ordered when pt is appropriate as pt is currently unable to stand. PANTOGRAPH I ENGRAVER met with the patient at bedside. Sw role explained, contact info and d/c planning checklist provided. Pt lives in [place] with her spouse. Pt is I at baseline, uses no DME, continues to drive and has never had HH or skilled rehab. Pt states she is I with her own self care and that she lives in a single story home with 1 step to enter. Pt is willing to participate in d/c planning discussions as her d/c needs become known. A: Pt who lives at home with her spouse and is I P: evolving; PANTOGRAPH I ENGRAVER to continue to follow pt's clinical course and assess for d/c needs. MAURICE Edward Addendum: 10/30/16 at 1055 by ASIM CHERY Amended: Links added.
--- NOTE | 2016-10-30 13:55 | NUR ---
Off unit to CT Pt left floor at approximately [address] Scan, via transporter. Pt on 12 L oxymask, HOB 30 degrees, surveillance system monitor notified. Care continues.
--- NOTE | 2016-10-30 15:00 | DRSVH ---
PROCEDURE: CT CHEST WITH CONTRAST ([id number]) INDICATIONS: dyspnea TECHNIQUE: After the administration of intravenous contrast, 5 mm thick sections acquired from the pulmonary api medardo to the posterior costophrenic angles. 7 mm thick coronal and sagittal MIP reformats were acquire d. For radiation dose reduction, the following was used: automated exposure control, adjustment of mA and/or kV according to patient size. COMPARISON: [facility], CT, CT CHEST HIGH RESOLUTION WO CONTRAST, 01/15/2016, 10:[address] [facility], CR, XR CHEST 1VW (PORTABLE), 10/27/2016, 20:09. [facility], CR, XR CHEST 1VW (PORTABLE), 10/29/2016, 6:01. FINDINGS: Image quality: Excellent. Lungs and pleura: There is right lower lobe consolidation with air bronchogram consistent with pneumo vin. There are patchy airspace infiltrates in left upper lobe and lower lobe. Mild left basilar cons olidation. There are small to moderate bilateral pleural effusions. No pneumothorax. Central and pe ripheral airways are patent and normal in caliber. Mediastinum: Heart size is mildly increased. No pericardial effusion. There is mediastinal adenopath y. For example, there is a 1.4 x 2.5 cm AP window lymph node. A 1.3 x 1.6 cm peripancreatic node is n oted. There is a 1.2 x 2.3 cm subcarinal lymph node. Prominent hilar lymph nodes are present, measuri ng 1.3 cm on the left and 1.2 cm on the right. Thoracic aorta and central pulmonary arteries are norm al in size. Esophagus is normal in caliber. No hiatal hernia. Bones and chest wall: No suspicious bony lesions. No vertebral body compression fractures. No axil stephani or supraclavicular adenopathy by size criteria. Thyroid gland is unremarkable. Abdomen: Visualized upper abdominal solid organs appear normal. Upper abdominal bowel loops are nor mal in caliber. Probable small left adrenal nodule measuring 8 mm. IMPRESSION: 1. Right lower lobe consolidation and airspace infiltrates in the left upper and lower lobes consiste nt with pneumonia. Recommend followup to resolution. 2. Mediastinal and bilateral hilar lymphadenopathy. 3. Bilateral small to moderate pleural effusions. 4. Possible small left adrenal nodule. Dictated by: Edwin Botello M.D. on 10/30/2016 at 14:34 Transcribed by: LOLI on 10/30/2016 at 14:59 Approved by: Edwin Botello M.D. on 10/30/2016 at 22:25
--- NOTE | 2016-10-30 15:12 | PCM.PNMED ---
Subjective Date of Service Oct 30, 2016 Subjective She denies fevers or abdominal pain. She is still coughing but mostly nonproductive. She feels globally weak. She has been on BiPAP with the exception of several 20 minute breaks. During his break she quickly fatigues and desaturates. No difficulties with urination. No overnight events noted. Exam Vital Signs Vital Sign - Last Date Time Temp Pulse Resp B/P Pulse Ox O2 Delivery O2 Flow Rate FiO2 10/30/16 13:29 101 34 97 45 10/30/16 12:50 36.1 121/60 BiPAP 6.00 Intake and Output 10/29/16 10/29/16 10/30/16 Cumulative From/Thru 15:00 23:00 07:00 10/27/16 19:58 - 10/30/16 06:37 Intake Total 541 ml 576 ml 7803 ml Output Total 400 ml 2950 ml Balance 541 ml 176 ml 4853 ml Intake Oral 150 ml 2050 ml IV Total 541 ml 426 ml 5753 ml Output Urine Total 100 ml 1850 ml Urine/Stool Mix 300 ml 1100 ml # Voids 1 5 Exam Alert and oriented -3, no distress. Fluent speech. She is on BiPAP. Anicteric sclera. Lungs are trouble for scattered rhonchi in all lung kumar with normal rate and effort on BiPAP Heart is regular without murmur gallop or rub Abdomen soft nontender, flat Extremities are free of edema. Skin is free of rash or lesions. IVs and Medications Medications Reviewed: Medications were reviewed in detail Lab and Diagnostics Result Diagram: 10/30/16 0230 10/29/16 0200 Microbiology Blood and sputum cultures obtained and sent. X-Rays, CTs and MRIs CT BRAIN WITHOUT CONTRAST IMPRESSION: 1. No acute intracranial process. 2. Moderate atrophy and chronic microvascular ischemic changes. Dictated by: Angela Pearson M.D. on 10/27/2016 at 20:29 Approved by: Angela Pearson M.D. on 10/27/2016 at 20:30 X-RAY CHEST ONE VIEW, PORTABLE IMPRESSION: Focal right basilar opacity most suggestive of pneumonia. Recommend interval follow to document resolution and exclude presence of underlying mass lesion. Dictated by: Angela Pearson M.D. on 10/27/2016 at 20:41 Approved by: Angela Pearson M.D. on 10/27/2016 at 20:41 12-lead ECG A. 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 Admitted for community-acquired pneumonia and new onset atrial fibrillation with RVR. #. Community-acquired pneumonia, present on admission, active and about the same. Chest x-ray indicates possibly a worsening pneumonia. Pro calcitonin 0.52 and WBC 15.3 with 79% neutrophils, In the ED patient given cefepime. Swithced to ceftriaxone and azithromycin. - pt remained symptomatic but maintain airways, requiring O2 supplement, she also continues to require BiPAP support nearly continuously. - Albuterol every 4 hours as needed. -infectious workup is unrevealing including a PCR panel and Legionella as well as pneumonia. -O2 supplement target>95%, BiPAP as needed. Continue ceftriaxone and azithromycin. CT chest with contrast to further evaluate the extent and pattern of her pneumonia. #. Acute respiratory failure with hypoxia, POA and active. We will continue BiPAP support as needed. She appears to not be able to wean in any meaningful way at this point in time. #. New onset atrial fibrillation with rapid ventricular response, resolved. -Discontinue heparin and diltiazem drips. #. Syncopal episode, present on admission, and resolved. Follow clinically. #. Hypokalemia and hypophosphatemia, present on admission and improving. Follow-up replete as necessary and recheck labs again tomorrow morning. #. Sepsis, present on admission, improved. infectious etiology community acquired pneumonia. - Patient received 1 L fluids in the ED. Continue at 100 ml/hr. Currently hemodynamically stable. Continue antibiotics. #. Essential Hypertension, present on admission, chronic. - Patient's home regimen includes losartan, atenolol, and hydrochlorothiazide. - Home meds held as we initiate treatment to control patient's new onset A. fib. Insomnia, present on admission, chronic. - Continue home regimen of zolpidem 10 mg nightly. dispo: pending home once pt is more stable, no need GI Prophylaxis: Not indicated VTE Prophylaxis: Sub-Q Heparin (Unfractionated), SCDs Resuscitation Status: CPR: Attempt Resuscitation Aris Jacob MD Oct 30, 2016 15:12
--- NOTE | 2016-10-30 15:38 | NUR ---
Evaluation completed. Please go to "Notes" then click on "Assessments and Notes" (bottom left corner of screen). Then select appropriate discipline tab on top of screen.
[2016-10-30 15:58] LABS: Mean Corpuscular Hemoglobin 29.1 pg (27.0-35.0); Mean Corpuscular Volume 87.3 fL (81-100)
[2016-10-30] MEDS ORDERED: Furosemide 10 mg/mL 4 mL Inj IVPUSH ONE (16:05)
[2016-10-30 16:23] LABS: Phosphorus 1.3 mg/dL (2.5-4.9)
[2016-10-30] MEDS: guaiFENesin 600 mg ER12 Tablet PO SCH (19:46)
[2016-10-30] MEDS: Heparin 5,000 Unit/mL Inj SUBQ SCH (19:54)
[2016-10-31] VITALS (11 sets, daily range): BP systolic 118–141; BP diastolic 61–73; PULSE 88–113; RESP 20–39; O2SAT 94–96
[2016-10-31 04:27] LABS: Mean Corpuscular Hemoglobin 28.9 pg (27.0-35.0); Mean Corpuscular Volume 87.7 fL (81-100)
[2016-10-31] MEDS: guaiFENesin 600 mg ER12 Tablet PO SCH ×2 (09:14→20:23)
[2016-10-31] MEDS: cefTRIAXone Inj 2,000 MG in Dextrose 5% Minibag Plus 50 ML IV SCH (09:14)
[2016-10-31] MEDS: Sodium Chloride LOK Flush 10 mL Syringe IVFLUSH SCH ×2 (09:14→16:31)
[2016-10-31] MEDS: Heparin 5,000 Unit/mL Inj SUBQ SCH ×2 (09:15→20:24)
--- NOTE | 2016-10-31 09:45 | NUR ---
SHANNON signed by .
--- NOTE | 2016-10-31 10:04 | NUR ---
Respiratory Rt called to rm to make bipap "stop beeping". Found Pt on 4.5LNC sat 97%. Pt states she feels fine, no SOB at this time. Said she had been off bipap for about a half an hour. Continue off until needed.
--- NOTE | 2016-10-31 10:46 | PCM.PNMED ---
Subjective Date of Service Oct 31, 2016 Subjective She is feeling much better today. She has been off BiPAP for 2 hours without any desaturations or tachypnea. She has less diarrhea. No abdominal pain or nausea. Her cough is primarily dry. No fevers this morning but she did have one overnight fever. No pain. CT scan yesterday confirms multilobar pneumonia. No overnight events noted. Exam Vital Signs Vital Sign - Last Date Time Temp Pulse Resp B/P Pulse Ox O2 Delivery O2 Flow Rate FiO2 10/31/16 09:17 113 Mask 10/31/16 08:45 36.7 30 127/64 95 4.00 10/31/16 07:37 45 Intake and Output 10/30/16 10/30/16 10/31/16 Cumulative From/Thru 15:00 23:00 07:00 10/27/16 19:58 - 10/31/16 05:50 Intake Total 200 ml 636 ml 8639 ml Output Total 2200 ml 5150 ml Balance 200 ml -1564 ml 3489 ml Intake Oral 636 ml 2686 ml IV Total 200 ml 5953 ml Output Urine Total 600 ml 2450 ml Urine/Stool Mix 1600 ml 2700 ml # Voids 5 Exam Alert and oriented -3, no distress. Fluent speech Anicteric sclera. Lungs are clear except bibasilar rales, with normal rate and effort Heart is regular without murmur gallop or rub Abdomen soft nontender, flat Extremities are free of edema. Skin is free of rash or lesions. Lab and Diagnostics Result Diagram: 10/31/16 0355 10/31/16 0355 Microbiology Blood and sputum cultures obtained and sent. X-Rays, CTs and MRIs CT BRAIN WITHOUT CONTRAST IMPRESSION: 1. No acute intracranial process. 2. Moderate atrophy and chronic microvascular ischemic changes. Dictated by: Angela Pearson M.D. on 10/27/2016 at 20:29 Approved by: Angela Pearson M.D. on 10/27/2016 at 20:30 X-RAY CHEST ONE VIEW, PORTABLE IMPRESSION: Focal right basilar opacity most suggestive of pneumonia. Recommend interval follow to document resolution and exclude presence of underlying mass lesion. Dictated by: Angela Pearson M.D. on 10/27/2016 at 20:41 Approved by: Angela Pearson M.D. on 10/27/2016 at 20:41 12-lead ECG A. 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 Admitted for community-acquired pneumonia and new onset atrial fibrillation with RVR. #. Community-acquired pneumonia, present on admission, active now improving.. CT scan confirms multilobar bilateral pneumonia. She has improvement overnight is now off BiPAP and is on oxygen following his nasal cannula. Continue ceftriaxone and azithromycin. Monitor respiratory status carefully. #. Acute respiratory failure with hypoxia, POA and improving. She is off BiPAP , we will follow her closely and use oxygen as needed. #. New onset atrial fibrillation with rapid ventricular response, resolved. -Discontinue heparin and diltiazem drips. Follow clinically. Continue telemetry. #. Syncopal episode, present on admission, and resolved. Follow clinically. #. Hypokalemia and hypophosphatemia, present on admission and resolved. Follow-up replete as necessary and recheck labs again tomorrow morning. #. Sepsis, present on admission, resolved infectious etiology community acquired pneumonia. - Patient received 1 L fluids in the ED. Continue at 100 ml/hr. Currently hemodynamically stable. Continue antibiotics. #. Essential Hypertension, present on admission, chronic. - Patient's home regimen includes losartan, atenolol, and hydrochlorothiazide. - Home meds held as we initiate treatment to control patient's new onset A. fib. Insomnia, present on admission, chronic. - Continue home regimen of zolpidem 10 mg nightly. Inpatient status. Anticipate possible discharge either Thursday or Thursday pending her clinical progress and oxygen demands. GI Prophylaxis: Not indicated VTE Prophylaxis: Sub-Q Heparin (Unfractionated), SCDs Resuscitation Status: CPR: Attempt Resuscitation Aris Jacob MD Oct 31, 2016 10:46
--- NOTE | 2016-10-31 13:07 | NUR ---
Social Work: Multidisciplinary Rounds Pt discussed in am rounds; sw status remains unchanged. Discharge needs unknown at this time. FIELD SPECIALIST to continue to follow to assess for further d/c needs. Jesenia Oleary MSW
--- NOTE | 2016-10-31 15:56 | NUR ---
Respiratory BIPAP still on s/b. Pt on 4.5 LNC. No SOB, feels comfortable on NC.
--- NOTE | 2016-10-31 18:40 | NUR ---
Resp/Activity/Stools Patient a/o x 3, denies pain or nausea, but has sob with activity. Patient taken off bipap this a.m. on 4L nc sat 95-98%. Patient having moderate coughing Tessalon pearls x 2 given, lungs with exertional wheezes this afternoon, RTC notified and up to eval. Patient amb in room with sba jessica well. Patient having multiple liq stools, sample sent to lab. VSS, tele SR with freq runs PSVT. notified, no new orders.
[2016-11-01] VITALS (11 sets, daily range): BP systolic 104–144; BP diastolic 61–86; PULSE 85–106; RESP 11–28; O2SAT 90–95
[2016-11-01] MEDS: Sodium Chloride LOK Flush 10 mL Syringe IVFLUSH SCH ×3 (00:16→15:36)
--- NOTE | 2016-11-01 06:19 | NUR ---
Sleep/Activity Patient reported concern at evening med pass that her usual home dose of ambien has not been working for her since her admit. She is worried because she feels that she hasn't gotten more than 45 minutes of sleep at a stretch since coming to the hospital. Page to Dr. Cortes to discuss options; patient's ambien switched to seroquel. Patient asleep shortly after taking the seroquel and reported on waking that she felt much better. Up to bathroom with 1 person assist. Continue to monitor.
[2016-11-01] MEDS: guaiFENesin 600 mg ER12 Tablet PO SCH ×2 (09:14→20:44)
[2016-11-01] MEDS: cefTRIAXone Inj 2,000 MG in Dextrose 5% Minibag Plus 50 ML IV SCH (09:14)
[2016-11-01] MEDS: Heparin 5,000 Unit/mL Inj SUBQ SCH ×2 (09:15→20:45)
--- NOTE | 2016-11-01 12:36 | NUR ---
Respiratory Pt assessed, BiPaP on S/B in rm, Pt on 2 LNC, Sat 96% Hr 85, BS clear bilaterally. Pt states she is dizzy, not SOB. RN aware
--- NOTE | 2016-11-01 15:04 | PCM.PNMED ---
Subjective Date of Service Nov 01, 2016 Subjective She is doing well better today. Less dyspnea. She denies any chest pain or palpitations. She has had a couple episodes of transient tachycardia. She is still fatigued. No difficulty going to the bathroom, her diarrhea persists but is slowly improving. No overnight events Exam Vital Signs Vital Sign - Last Date Time Temp Pulse Resp B/P Pulse Ox O2 Delivery O2 Flow Rate FiO2 11/01/16 14:23 Room Air 11/01/16 12:01 36.7 85 11 104/64 94 2.00 10/31/16 07:37 45 Intake and Output 10/31/16 10/31/16 11/01/16 Cumulative From/Thru 15:00 23:00 07:00 10/27/16 19:58 - 11/01/16 06:18 Intake Total 200 ml 70 ml 450 ml 9359 ml Output Total 900 ml 850 ml 650 ml 7550 ml Balance -700 ml -780 ml -200 ml 1809 ml Intake Oral 200 ml 400 ml 3286 ml IV Total 70 ml 50 ml 6073 ml Output Urine Total 900 ml 850 ml 650 ml 4850 ml Urine/Stool Mix 2700 ml # Voids 5 # Bowel Movements 3 1 4 Exam Alert and oriented -3, no distress. Fluent speech Anicteric sclera. Lungs are clear with normal rate and effort Heart is regular without murmur gallop or rub Abdomen soft nontender, flat Extremities are free of edema. Skin is free of rash or lesions. IVs and Medications Medications Reviewed: Medications were reviewed in detail Lab and Diagnostics Result Diagram: 10/31/16 0355 10/31/16 0355 Microbiology Blood and sputum cultures obtained and sent. X-Rays, CTs and MRIs CT BRAIN WITHOUT CONTRAST IMPRESSION: 1. No acute intracranial process. 2. Moderate atrophy and chronic microvascular ischemic changes. Dictated by: Angela Pearson M.D. on 10/27/2016 at 20:29 Approved by: Angela Pearson M.D. on 10/27/2016 at 20:30 X-RAY CHEST ONE VIEW, PORTABLE IMPRESSION: Focal right basilar opacity most suggestive of pneumonia. Recommend interval follow to document resolution and exclude presence of underlying mass lesion. Dictated by: Angela Pearson M.D. on 10/27/2016 at 20:41 Approved by: Angela Pearson M.D. on 10/27/2016 at 20:41 12-lead ECG A. 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 Admitted for community-acquired pneumonia and new onset atrial fibrillation with RVR. #. Community-acquired pneumonia, present on admission, active, continues to improve . CT scan confirms multilobar bilateral pneumonia. She has improvement overnight is now off BiPAP and is on oxygen following his nasal cannula. Continue ceftriaxone and azithromycin. Monitor respiratory status carefully. She continues to do better. We will anticipate one more day of IV antibiotics and probable discharge on Thursday. #. Acute respiratory failure with hypoxia, POA and improving. She is off BiPAP , we will follow her closely and use oxygen as needed. She has done well overnight and has not needed anymore BiPAP and continues to wean her oxygen. #. New onset atrial fibrillation with rapid ventricular response, resolved. -Discontinue heparin and diltiazem drips. Follow clinically. She has had a couple of transient episodes of tachycardia. Overall she is in sinus rhythm and doing well. #. Syncopal episode, present on admission, and resolved. Follow clinically. #. Hypokalemia and hypophosphatemia, present on admission and resolved. I will clinically. #. Sepsis, present on admission, resolved. Source of infection is community acquired pneumonia. - Patient received 1 L fluids in the ED. Continue at 100 ml/hr. Currently hemodynamically stable. Continue antibiotics. #. Essential Hypertension, present on admission, chronic. - Patient's home regimen includes losartan, atenolol, and hydrochlorothiazide. - Home meds held as we initiate treatment to control patient's new onset A. fib. Insomnia, present on admission, chronic. - Continue home regimen of zolpidem 10 mg nightly. Inpatient status. Anticipate possible discharge Thursday pending her clinical progress and oxygen demands. GI Prophylaxis: Not indicated VTE Prophylaxis: Sub-Q Heparin (Unfractionated), SCDs Resuscitation Status: CPR: Attempt Resuscitation Aris Jacob MD Nov 01, 2016 15:04
--- NOTE | 2016-11-01 18:22 | NUR ---
Activity/Resp/Bowels Patient a/o x 3, denies pain or nausea. Patient weaned off O2 this a.m. Ra sat 94-96% at rest, drops to 89-90% with amb to bathroom. Lungs clear bilat. Patient c/o dizziness with activity, O2 @ 2 L nc reapplied sat 96%. VSS, tele SR-ST 70-100's. Patient cont to have loose stools, Imodium x 1 given.
[2016-11-02] MEDS: Sodium Chloride LOK Flush 10 mL Syringe IVFLUSH SCH ×2 (00:56→09:46)
[2016-11-02 03:34] VITALS: BP 125/71; PULSE 82; RESP 24; O2SAT 96
[2016-11-02 05:12] VITALS: PULSE 82
--- NOTE | 2016-11-02 06:13 | NUR ---
Rest/O2 Patient declined her seroquel for sleep; states that she felt dizzy on thursday morning and feels that this was related to having the seroquel at bedtime on thursday night. Patient dozing off and on in bed, up several times to bathroom. SpO2 found to be 90% at rest on room air; patient on 2L via nasal cannula overnight to prevent further desaturation. Ambulates with standby assist without difficulty.
[2016-11-02 08:30] VITALS: PULSE 82
[2016-11-02 08:38] VITALS: BP 147/80; PULSE 92; RESP 20; O2SAT 94
[2016-11-02] MEDS: guaiFENesin 600 mg ER12 Tablet PO SCH (09:45)
[2016-11-02] MEDS: Heparin 5,000 Unit/mL Inj SUBQ SCH (09:46)
[2016-11-02 09:50] VITALS: PULSE 87
[2016-11-02 10:08] VITALS: PULSE 112
--- NOTE | 2016-11-02 10:39 | NUR ---
Social Work- Discharge/Multidisciplinary Rounds Data: EMR reviewed. Pt is on day 6 of hospitalization. Pt discussed in rounds. Pt will discharge today. No SW needs identified. SW met with pt and at bedside regarding discharge plan. Pt will discharge home with to transport via POV. No needs identified. Assessment: Pt who is independent at baseline. Plan: Pt will discharge home with to transport via POV. No needs identified. MAURICE Disla
--- NOTE | 2016-11-02 10:45 | PCM.DIMED ---
Discharge Instructions Date of Service Nov 02, 2016 Dates of Hospitalization Oct 27, 2016 at 23:35 Discharge Diagnosis Discharge Diagnosis #. Community-acquired pneumonia, improved. #. Acute respiratory failure with hypoxia, improved. #. New onset atrial fibrillation with rapid ventricular response, resolved. #. Syncopal episode, resolved. #. Hypokalemia and hypophosphatemia, resolved. #. Sepsis, resolved. #. Essential Hypertension, stable. Call your provider Call your provider for: Fever or Chills, Shortness of breath, Chest pain Patient Instructions Follow-up Provider: Zachray Lawrence MD Follow-up with PCP in: 1 week Aris Jacob MD Nov 02, 2016 10:45
[2016-11-02] MEDS ORDERED: CEFU500T61 PO (10:46)
--- NOTE | 2016-11-02 12:25 | NUR ---
Discharge note Patient a/o x 4, denies pain, nausea or sob. Patient on RA sat 93-94% at rest. Amb in room with sba jessica well. VSS, tele SR-ST with occassional runs of PSVT, patient asymptomatic. IV SL and tele removed intact. Patient given discharge instructions, medication reconciliation, info on diagnosis and meds and new prescriptions. All questions answered. Patient taken to car via wheelchair with all belongings and discharged home with .
--- NOTE | 2016-11-03 10:40 | PCM.DC.MED ---
Discharge Summary Date of Service Nov 02, 2016 Dates of Hospitalization Date of Hospital Admission Oct 27, 2016 at 23:35 Date of Discharge: Nov 02, 2016 Providers: Admitting Physician: Pelon Graves MD Primary Care Physician: Zachary Lawrence MD Attending Physician: Aris Jacob MD Diagnosis at Time of Discharge Diagnosis at Time of Discharge #. Community-acquired pneumonia, improved. #. Acute respiratory failure with hypoxia, improved. #. New onset atrial fibrillation with rapid ventricular response, resolved. #. Syncopal episode, resolved. #. Hypokalemia and hypophosphatemia, resolved. #. Sepsis, resolved. #. Essential Hypertension, stable. Consultations None Procedures XRay, CTs & MRIs CT BRAIN WITHOUT CONTRAST IMPRESSION: 1. No acute intracranial process. 2. Moderate atrophy and chronic microvascular ischemic changes. Dictated by: Angela Pearson M.D. on 10/27/2016 at 20:29 Approved by: Angela Pearson M.D. on 10/27/2016 at 20:30 X-RAY CHEST ONE VIEW, PORTABLE IMPRESSION: Focal right basilar opacity most suggestive of pneumonia. Recommend interval follow to document resolution and exclude presence of underlying mass lesion. Dictated by: Angela Pearson M.D. on 10/27/2016 at 20:41 Approved by: Angela Pearson M.D. on 10/27/2016 at 20:41 ECG 12 Lead A. fib with RVR Cardiac Echo Impression Echocardiogram Report Name: NATO SHAH JStudy Date: Height: 64 in Hospital Exam Location: [facility] Weight: 170 lb Gender: Female BSA: 1.8 m2 : 1935 Age: 81 yrs BP: 103/65 mm Hg Reason For Study: Atrial fibrillation Ordering Physician: Raciel BeanistPerformed By: Reed Salas Referring Physician: VIKI BEYER Interpretation Summary The left ventricle is normal in size. The ejection fraction is estimated to be 60-65%.There has been no significant change in LV EF since the previous study. The right ventricle is normal size. The right ventricular systolic function is normal. The left atrium is severely dilated. The left atrium has significantly increased in size since the prior echo exam. There is mild mitral regurgitation. Compared to the prior echo study, there has been no change in the severity of mitral regurgitation. There is mild tricuspid regurgitation. The right ventricular systolic pressure is estimated at 32 mmHg assuming a right atrial pressure of 3 mm Hg. has been no significant change since the previous study. 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 Patient states that she lost consciousness prior to this occurrence on Thursday evening while she was in the bathroom. She cannot recall if she was on the toilet or anything about the preceding events. When she regained consciousness she had not sustained any injuries that she could tell. She denies any precipitating event or preceding symptoms. As this was a single episode she did not present for evaluation. Her presentation to the urgent care was due to her fever 104F that was associated with nonproductive cough, nausea, shortness of breath, and dizziness. She denies any headache, vision changes, emesis, diarrhea, dysuria, chest pain, or palpitations. She states she has had the cough for the last 3-4 days and some mild shortness of breath. She denies any sick contacts or recent hospitalizations. She sees Dr. Khan for the hole in her aortic valve. Currently he has not advised any intervention at this time and they are simply monitoring. She has never had a diagnosis of atrial fibrillation. In the ED patient's vitals temperature 39.3, pulse 117, respiratory 26, blood pressure 141/69, pulse oximetry 95% on 3 L nasal cannula. EKG showed A. fib with RVR. Labs were remarkable for leukocytosis of 15.3 with 79% neutrophils, sodium 129, potassium 3.0, lactic acid 1.4, and phosphorus 1.3. In the ED the patient received 1 L fluid and was started on vancomycin, levofloxacin, and cefepime. 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 Admitted for community-acquired pneumonia and new onset atrial fibrillation with RVR. #. Community-acquired pneumonia, present on admission, active, continues to improve . CT scan confirms multilobar bilateral pneumonia. She has improvement overnight is now off BiPAP and is on oxygen following his nasal cannula. Continue ceftriaxone and azithromycin. Monitor respiratory status carefully. She continues to do better. We will anticipate one more day of IV antibiotics and probable discharge on Thursday. #. Acute respiratory failure with hypoxia, POA and improving. She is off BiPAP , we will follow her closely and use oxygen as needed. She has done well overnight and has not needed anymore BiPAP and continues to wean her oxygen. #. New onset atrial fibrillation with rapid ventricular response, resolved. -Discontinue heparin and diltiazem drips. Follow clinically. She has had a couple of transient episodes of tachycardia. Overall she is in sinus rhythm and doing well. #. Syncopal episode, present on admission, and resolved. Follow clinically. #. Hypokalemia and hypophosphatemia, present on admission and resolved. I will clinically. #. Sepsis, present on admission, resolved. Source of infection is community acquired pneumonia. - Patient received 1 L fluids in the ED. Continue at 100 ml/hr. Currently hemodynamically stable. Continue antibiotics. #. Essential Hypertension, present on admission, chronic. - Patient's home regimen includes losartan, atenolol, and hydrochlorothiazide. - Home meds held as we initiate treatment to control patient's new onset A. fib. Insomnia, present on admission, chronic. - Continue home regimen of zolpidem 10 mg nightly. Inpatient status. Hospital course. The patient was admitted and treated with empiric antibiotics for. Community-acquired pneumonia. She did require BiPAP support for her acute respiratory failure with hypoxia. The first 2-[address] scan indicated a multilobar pneumonia but no evidence of pulmonary edema. She did have atrial fibrillation with rapid ventricular response requiring a diltiazem drip but also this was weaned off and in fact she converted to sinus rhythm with only occasional episodes of PAF. Over the last 2 days she improved significantly was able to wean off oxygen completely. She is able to ambulate and had a good appetite. Her white count normalized. They have discharged her saturations were 89-90% with exertion in mid 90s at rest on room air. She was felt to be stable for discharge with close follow-up. Exam Vital Signs (Last) Date Time Temp Pulse Resp B/P Pulse Ox O2 Delivery O2 Flow Rate FiO2 11/02/16 10:08 112 Room Air 21 11/02/16 08:38 36.6 20 147/80 94 11/01/16 15:42 2.00 Exam She was seen and examined on the day of discharge. Test 10/27/16 19:29 10/27/16 23:05 10/29/16 02:00 10/30/16 02:30 Prothrombin Time 10.4sec (8.1-12.5) Prothromb Time International Ratio 0.97ratio Hemoglobin A1c 5.6% (4.8-5.6) Lactic Acid Level 1.4mmol/L (0.4-2.0) Troponin T < 0.010ug/L (0.0-0.011) Pro-B-Type Natriuretic Peptide 1240pg/mL (0-738) Lipase 28U/L (13-60) Thyroid Stimulating Hormone (TSH) 1.790uIU/mL (0.450-4.500) Urine Color Yellow (YELLOW) Urine Appearance Clear (CLEAR,HAZY) Urine pH 6.5 (5.0-8.0) Urine Specific [place] 1.005 (1.003-1.035) Urine Protein Tracemg/dL (NEG,TRACE) Urine Glucose (UA) Negativemg/dL (NEGATIVE) Urine Ketones Negativemg/dL (NEGATIVE) Urine Occult Blood Small (NEGATIVE) Urine Nitrite Negative (NEGATIVE) Urine Bilirubin Negative (NEGATIVE) Urine Urobilinogen Normalmg/dL (NORMAL) Urine Leukocyte Esterase Trace (NEGATIVE) Urine RBC 3-10/hpf (0-2) Urine WBC 0-5/hpf (0-5) Urine Epithelial Cells Occasional/hpf (NONE-MOD) Urine Crystals None seen (NONE SEEN) Urine Bacteria None/hpf (NONE-FEW) Urine Hyaline Casts None/lpf (NONE) Urine Granular Casts None seen (NONE SEEN) Urine Waxy Casts None seen (NONE SEEN) Urine Red Blood Cell Casts None seen (NONE SEEN) Urine White Blood Cell Casts None seen (NONE SEEN) Urine Mucus None seen (None Seen) Urine Trichomonas None seen (NONE SEEN) Urine Yeast None (NONE SEEN) Urinalysis Comment None Urine Culture Reflexed Not indicated Urine Legionella pneumophilia Ag Negative (Negative) Neutrophils (%) (Auto) 80.1% (40-74) Lymphocytes (%) (Auto) 11.2% (14-46) Monocytes (%) (Auto) 7.8% (4-12) Eosinophils (%) (Auto) 0.1% (0-5) Basophils (%) (Auto) 0.3% (0-3) Magnesium Level 3.1mg/dL (1.6-2.6) Procalcitonin 9.45ng/mL (0.00-0.08) Test 10/30/16 14:21 10/30/16 15:45 10/31/16 03:55 Activated Partial Thromboplast Time 32.4sec (22.8-33.0) Phosphorus Level 1.3mg/dL (2.5-4.9) Total Bilirubin 0.2mg/dL (0.0-1.2) Aspartate Amino Transf (AST/SGOT) 58U/L (0-50) Alanine Aminotransferase (ALT/SGPT) 38U/L (0-32) Alkaline Phosphatase 83U/L (25-165) Total Protein 7.0g/dL (6.4-8.4) Albumin 3.0g/dL (3.4-5.0) White Blood Count 8.4th/mm3 (3.8-10.1) Red Blood Count 3.32mil/mm3 (3.90-5.20) Hemoglobin 9.6g/dL (12.0-15.6) Hematocrit 29.1% (35.0-46.0) Mean Corpuscular Volume 87.7fL (81-100) Mean Corpuscular Hemoglobin 28.9pg (27.0-35.0) Mean Corpuscular Hemoglobin Concent 33.0% (32.0-37.0) Red Cell Distribution Width 12.9% (12.3-15.4) Platelet Count 207bil/L (150-400) Sodium Level 133mEq/L (134-144) Potassium Level 3.6mEq/L (3.5-5.2) Chloride Level 97mEq/L (97-108) Carbon Dioxide Level 20mmol/L (18-29) Blood Urea Nitrogen 13mg/dL (8-27) Creatinine 0.76mg/dL (0.57-1.00) Estimat Glomerular Filtration Rate 104mL/min (>59) Glucose Level 110mg/dL (60-99) Calcium Level 7.3mg/dL (8.5-10.1) Microbiology Results Blood and sputum cultures obtained and sent. Discharge Medications Discharge Medications Aspirin (Aspirin) 81 Mg Tablet 81 MG PO DAILY (Reported) Atenolol (Atenolol) 25 Mg Tablet 12.5 MG PO DAILY (Reported) Cefuroxime Axetil (Cefuroxime) 500 Mg Tablet 500 MG PO BID Prescribed by: ARIS JACOB MD Losartan Potassium (Losartan Potassium) 50 Mg Tablet 25 MG PO BID (Reported) As needed Zolpidem (Zolpidem) 5 Mg Tablet 5 MG PO HS PRN PRN For Insomnia (Reported) Miscellaneous Medications ([Hydrochlorothiazide]) MG PO (Reported) Followup Plan Disposition: Home Follow-up Provider: Zachary Lawrence MD Follow-up with PCP in: 1 week Time spent 40 minutes Aris Jacob MD Nov 03, 2016 10:40
== END 2016-11-02 15:00 | disposition home or self-care (01) | DRG 871 ==
LOC: EDBD 19:43 → SED 19:43 → EDSEX 19:43 → PCC 23:35
PROVIDERS: ADMIT Hospitalist; ATTEND Hospitalist
PROC: 4A033R1 Measurement of Arterial Saturation, Peripheral, Percutaneous Approach (ICD-10-PCS; principal; 2016-10-27)
DX: A41.9 Sepsis, unspecified organism (principal); J18.9 Pneumonia, unspecified organism; J96.01 Acute respiratory failure with hypoxia; E87.1 Hypo-osmolality and hyponatremia; I47.1 Supraventricular tachycardia; I48.0 Paroxysmal atrial fibrillation; R55 Syncope and collapse; E83.51 Hypocalcemia; E87.6 Hypokalemia; I10 Essential (primary) hypertension; F51.04 Psychophysiologic insomnia; E83.39 Other disorders of phosphorus metabolism